=== PATIENT | female | born 1930 | race Caucasian/White ===

== ENCOUNTER 2018-06-07 08:24 | Inpatient (IN) | payer MEDICARE, BC ==
--- NOTE | 2018-06-07 08:59 | RAD ---
LEFT HIP TWO VIEWS: History: Fall with left hip pain. FINDINGS: There is a varus angulated subcapital left femoral neck fracture. No additional fracture is evident. There is diffuse osteopenia. IMPRESSION: Varus angulated left subcapital femoral neck fracture. POS: [facility]
--- NOTE | 2018-06-07 09:06 | CT ---
CT BRAIN: Date: 06-07-18 Provided Clinical History: Status post fall. Pain on left side. FINDINGS: The ventricular system appears normal in size and morphology. There is no evidence for intracranial h emorrhage or mass effect. The extracranial soft tissues and osseous structures demonstrate no acute a bnormality. IMPRESSION: No evidence for intracranial hemorrhage or mass effect. POS: [facility]
--- NOTE | 2018-06-07 09:07 | CT ---
CT CERVICAL SPINE: Date: 06-07-18 Provided Clinical History: Pain, status post fall. FINDINGS: There is no evidence for fracture or traumatic subluxation. Prominent cervical degenerative changes a re seen. No prevertebral soft tissue swelling evident. The visualized lung apices appear clear. IMPRESSION: No evidence for fracture or traumatic subluxation. POS: [facility]
--- NOTE | 2018-06-07 09:20 | RAD ---
FRONTAL RADIOGRAPH OF THE PELVIS: Date: 06-07-18 Comparison: None. History: Fall, trauma, pain. FINDINGS: There is subtle irregularity involving the superior pubic ramus on the left, suggesting a age indeter minate fracture. There is also subtle irregularity involving the inferior pubic ramus on the left, al so suggesting an age indeterminate subtle fracture. There is a poorly assessed fracture of the left f emoral neck with impaction and rotation of the proximal left femur. There is no widening of the sacro iliac joints or the pubic symphysis. IMPRESSION: 1. Impaction fracture of the left femoral neck. 2. Age indeterminate subtle fracture deformities noted involving the inferior and superior pubic oc s on the left. A CT examination of the pelvis could best assess fracture deformities involving the in ferior and superior pubic ramus on the left, as well as the left femoral neck. 3. Results called to Dr. Addison 8:50 a.m. 06-07-18. POS: [facility]
[2018-06-07 09:21] LABS: #Lymphocytes 1.5 thou/uL (1.20-3.40); #Monocytes 0.4 thou/uL (0.11-0.59); #Neutrophils 7.6 thou/uL (1.40-6.50); %Basophils 0.5 % (0.0-1.0); %Eosinophils 0.2 % (0.0-10.0); %Lymphocytes 15.7 % (21.0-51.0); %Monocytes 3.8 % (0.0-10.0); %Neutrophils 79.8 % (42.0-75.0); Mean Corpuscular Hemoglobin 32.2 pg (27.0-31.0); Mean Corpuscular Volume 97.7 fL (78.0-98.0); Mean Platelet Volume 8.1 fL (7.4-10.4); Platelet Count 205 thou/uL (130-400); RBC Distribution Width 12.2 % (11.5-14.5); Red Blood Cell (RBC) Count 4.35 mill/uL (4.20-5.40); White Blood Cell (WBC) Count 9.5 thou/uL (4.8-10.8)
[2018-06-07 09:37] LABS: PTT 28.2 SEC (22.9-36.1)
--- NOTE | 2018-06-07 09:42 | RAD ---
CHEST ONE VIEW: History: Pre op. Comparison: None. FINDINGS: There is interstitial prominence likely reflective of underlying fibrotic change. Heart size is upper limits of normal. There are vascular calcifications involving the thoracic aorta. A small chondroid lesion versus bone infarct along the proximal left humerus. There is mild scoliosis. There is diffuse osteopenia. IMPRESSION: No definite acute cardiopulmonary abnormality. POS: [facility]
[2018-06-07 09:44] LABS: Prothrombin Time 13.1 SEC (12.0-14.7)
[2018-06-07 09:47] LABS: ALT (SGPT) 15 U/L (8-55); AST (SGOT) 25 U/L (5-34); Albumin 3.7 g/dL (3.4-4.8); Alkaline Phosphatase 90 U/L (40-150); Anion Gap 11 mmol/L (10-20); BUN (Urea Nitrogen) 11 mg/dL (9.8-20.1); Bilirubin, Total 0.5 mg/dL (0.2-1.2); Calc. Creatinine Clearance 0 mL/min (70-130); Calcium 9.3 mg/dL (7.8-10.44); Carbon Dioxide 26 mmol/L (23-31); Chloride 107 mmol/L (98-107); Estimated GFR-MDRD 70; Globulin 2.9 g/dL (2.4-3.5); Glucose 117 mg/dL (83-110); Potassium 3.3 mmol/L (3.5-5.1); Protein, Total 6.6 g/dL (6.0-8.3); Sodium 141 mmol/L (136-145)
[2018-06-07] MEDS ORDERED: CEFAZOLIN/Water 2 GM/20 ML SYRINGE SLOW IVP SCH (10:00)
--- NOTE | 2018-06-07 10:16 | CON ---
DATE OF CONSULTATION: 06/07/2018 CONSULTING PHYSICIAN: Dr. Abdoul Salvador We were asked by Trauma in the Emergency Room to see the patient. The patient resides at [facility] and had a fall this morning. The patient does not think she hit her head, but unfortunately per family who is at the bedside, over the last 6 months her mentation has become much more diminished. She does have Alzheimer's and the family states that they have noticed a dramatic decline over the past 6 months. The patient's gait is also unsteady per family. She knows she has left hip pain, but is not able to let me know if she hit her head. She is not sure, but she has no bruising about the head whatsoever. She denies any numbness with palpation to her lower extremities, but has a fair amount of hip pain when I move that hip. Apparently per [facility] the patient has not eaten since last night. PAST MEDICAL HISTORY: Hyperthyroid, Alzheimer's, macular degeneration, breast cancer 20 years ago. PAST SURGICAL HISTORY: section and hysterectomy. PSYCHIATRIC HISTORY: Alzheimer's/depression. ALLERGIES: None noted. CURRENT MEDICATIONS: The patient takes levothyroxine, Abilify, Aricept, Namenda and baby aspirin. REVIEW OF SYSTEMS: Left hip pain and Alzheimer's, which the patient is struggling with answering questions, but again family is at the bedside. The rest of review of systems is negative. PHYSICAL EXAMINATION: GENERAL: Well-nourished appearing female, resting comfortably in bed. She is answering very simple questions, only oriented to person. HEENT: Normal exam. Face symmetric, tongue midline. NECK: Supple, trachea midline. RESPIRATORY: No distress. EXTREMITIES: Upper extremities; equal size, shape, symmetry, normal bulk and tone. Lower extremities; right lower extremity, no issues. Left lower extremity has a little bit of redness over the hip and pain with any movement of that left lower extremity. DP, PT pulses are grossly intact. ASSESSMENT: Left hip fracture. X-rays showed a left hip fracture. PLAN: I spoke with family and patient. We will go ahead and get her set up for a hemiarthroplasty. I have explained the procedure to the patient and the family, and the family will have to give authorization, which after discussing risks and benefits they are amenable to go forth with surgery. I let them know it is probably imperative to get her upright again and moving, it will be better for her in the long run and they understand this. The patient states she is okay if we fix her hip, but she really did not understand the risks and benefits as we explained to them to the family. We will discuss this again, but she just knows that she wants her hip to quit hurting and we can fix that for her. Status on eating, n.p.o. definitely since last night. We will get her put on the OR time slot, get her consented. Lab work has been drawn and get her set up for surgery. JEAN
[2018-06-07] MEDS ORDERED: CEFAZOLIN 2 GM/50 ML-DEXTROSE 2 GM in Premix Bag 1 BAG IVPB SCH (10:30)
[2018-06-07] MEDS ORDERED: Dextrose 5% in Water 1,000 ML IV PRN (11:16)
[2018-06-07] MEDS ORDERED: Ondansetron PF 4 MG/2 ML Vial IVP PRN (11:16)
[2018-06-07] MEDS ORDERED: Ondansetron ODT 4 MG TAB PO PRN (11:16)
[2018-06-07] MEDS ORDERED: Promethazine HCl 25 MG/ML VIAL IM PRN (11:16)
[2018-06-07] MEDS ORDERED: Dextrose 50% Abboject 50 ML SYRINGE SLOW IVP PRN (11:16)
[2018-06-07] MEDS ORDERED: Morphine 2 MG/ML SYRINGE SLOW IVP PRN (11:18)
[2018-06-07 11:43] LABS: Bacteria/HPF None Seen HPF (None Seen); Bilirubin Negative (Negative); Blood, Urine Small (Negative); Clarity CLOUDY (Clear); Glucose, Urine (Dipstick) Negative (Negative); Leukocyte Small (Negative); Nitrite Negative (Negative); Pathc Cast-AUWi Flag 2.47 (0-2.49); Protein, Urine (Dipstick) 30 mg/dL (Neg-Trace); Specific Gravity, Urine 1.024 (1.002-1.036)
[2018-06-07 11:45] LABS: Yeast-AUWi Flag 167.4 (0-25.0)
--- NOTE | 2018-06-07 11:53 | HP-2 ---
DATE OF ADMISSION: 06/07/2018 REQUESTING PHYSICIAN: Dr. Kin Addison M.D., emergency room physician RESIDENT: Dr. Rhonda Mera ATTENDING: Dr. Clayton Espino HISTORY OF PRESENT ILLNESS: This is an 87-year-old female who presented to the emergency department after a mechanical fall. The patient currently resides at [facility] and stated that she had a fall after tripping. The patient denies hitting her head or loss of consciousness. Per family at the bedside, over the last 6 months, the patient's mentation has become much more diminished. The patient does have Alzheimer's and family states that they have noticed a dramatic decline over the last 6 months. The patient's gait has also become unsteady per the family. The patient is complaining of left hip pain on exam in the ED. The patient denies any numbness with palpation to her lower extremities and reports pain with movement of the left lower extremity. Per [facility], the patient has not eaten since last night. The patient is A&O x1 on exam per baseline per the family. The information and the history has been obtained from the patient's family at the bedside and medical records. PAST MEDICAL HISTORY: Hyperthyroidism, Alzheimer's, macular degeneration, breast cancer 20 years ago. PAST SURGICAL HISTORY: section and hysterectomy. PSYCHIATRIC HISTORY: Alzheimer dementia, depression. ALLERGIES: None noted. MEDICATIONS: Levothyroxine, Abilify, Aricept, Namenda, aspirin. REVIEW OF SYSTEMS: Left hip pain and Alzheimer dementia. The patient is struggling with answering questions. Family at the bedside to assist with answering questions. Review of systems other than in HPI is negative. PHYSICAL EXAMINATION: VITAL SIGNS: Temperature 98.2, pulse 79, respirations 18, O2 saturation 97% on room air. GENERAL: Vital signs stable. On exam the patient is an elderly female resting comfortably in bed, in no acute distress. HEAD: Normal exam. Normocephalic, atraumatic. No contusions noted. NECK: Supple, trachea midline. RESPIRATORY: Bilateral symmetrical chest rise, nonlabored breathing. Clear to auscultation bilaterally. CARDIOVASCULAR: Regular rate and rhythm. No murmurs, rubs, or gallops. ABDOMEN: Soft, nontender, nondistended. EXTREMITIES: Upper extremities; equal size, shape, symmetry, normal bulk and tone. Lower extremities, right lower extremity normal exam. Left lower extremity; redness over the hip and pain with all movements of the left lower extremity. Pulses 2+ bilaterally in the lower extremities. NEUROLOGIC: GCS 15, speech normal, nonfocal exam. PSYCHIATRIC: The patient is A&O x1 per baseline. LABORATORY DATA: WBC is 9.5, hemoglobin 14, hematocrit 42.5, platelet 205. PT 13.1, INR 1, PTT 28.2. Sodium 141, potassium 3.3, chloride 107, BUN 11, creatinine 0.78, estimated GFR 70, LFTs within normal limits. RADIOGRAPHIC FINDINGS: Chest x-ray showed no definite acute cardiopulmonary abnormality. Brain CT showed no evidence for intracranial hemorrhage or mass effect. Pelvis x-ray showed impaction fracture of the left femoral neck, age indeterminate. Subtle fracture deformities noted involving inferior and superior pubic ramus on the left. CT exam of the pelvis recommended to best assess fracture deformities involving the inferior and superior pubic ramus on the left as well as a left femoral neck. Hip x-ray showed varus angulated left subcapital femoral neck fracture. Cervical spine CT showed no evidence for fracture or traumatic subluxation. ASSESSMENT AND PLAN: 1. Left hip fracture. 2. Electrolyte abnormalities. 3. Alzheimer dementia. 4. Acute traumatic pain. PLAN: The patient will be admitted to the Trauma Service and taken to the surgical floor. Orthopedic Surgery has been consulted and has spoken with and examined the patient. The patient will go to the OR for hemiarthroplasty with Dr. Salvador of Orthopedic Surgery. Postoperatively, the patient will be initiated with physical and occupational therapy. Pain control will be obtained with Iv and then transitioned to p.o. pain analgesics. Incentive spirometry and pulmonary toileting will be in place. The patient has been n.p.o. definitely since last night and we will follow her postoperatively as well. We will replace electrolytes as needed. We will place a rehab screen for discharge planning. The patient was seen and examined by Dr. Clayton Espino in the ED. The plan was discussed with the patient and family who were at the bedside and were all in agreement. JEAN
[2018-06-07 11:59] LABS: Hyaline Casts/LPF 4-6 HYALINE CAST LPF (0-3 Hyaline)
[2018-06-07 12:00] LABS: Crystals/HPF 2+ AMORPH URATES HPF (Negative); Yeast-All Forms None Seen HPF (None Seen)
[2018-06-07 13:31] VITALS: BMI 26.2
[2018-06-07] MEDS: Sodium Chloride 0.9% 1,000 ML IV SCH ×2 (14:18→14:39)
[2018-06-07] MEDS: traMADol HCl 50 MG TAB PO SCH ×2 (14:18→20:24)
[2018-06-07] MEDS: Acetaminophen 500 MG TAB PO SCH ×3 (14:18→23:22)
[2018-06-07] MEDS ORDERED: CEFAZOLIN 2 GM/50 ML BAG ONE (16:41)
[2018-06-07] MEDS ORDERED: Lidocaine 1% PF 5 ML VIAL ONE (17:14)
[2018-06-07] MEDS ORDERED: Ondansetron PF 4 MG/2 ML Vial ONE (17:14)
[2018-06-07] MEDS ORDERED: PHENYLEPHRINE-NS 100 MCG/ML 10 ML SYRINGE ONE (17:14)
[2018-06-07] MEDS ORDERED: Glycopyrrolate 0.2 MG/ML 5 ML SYRINGE ONE (17:14)
[2018-06-07] MEDS ORDERED: PROPOFOL 200 MG/20 ML VIAL ONE (17:14)
[2018-06-07] MEDS ORDERED: Fentanyl 100 MCG/2 ML VIAL ONE (17:41)
--- NOTE | 2018-06-07 20:00 | RAD ---
TWO VIEWS LEFT HIP 06/07/18 HISTORY: Left hip arthroplasty. AP and lateral views of the left hip obtained. The patient has had a unipolar left hip arthroplasty. Femoral and acetabular components are in good p osition. IMPRESSION: Status post left hip arthroplasty. POS: [facility]
[2018-06-07] MEDS ORDERED: Famotidine/PF 20 mg/2ml Vial SLOW IVP SCH (21:00)
[2018-06-07] MEDS ORDERED: Famotidine 20 MG TAB PO SCH (21:00)
[2018-06-08] MEDS: CEFAZOLIN 2 GM/50 ML BAG IVPB SCH ×2 (00:37→09:25)
--- NOTE | 2018-06-08 01:24 | OP ---
PROCEDURE: Left hip bipolar hemiarthroplasty. PREOPERATIVE DIAGNOSIS: Left femoral neck fracture. POSTOPERATIVE DIAGNOSIS: Left femoral neck fracture. COMPLICATIONS: None. ESTIMATED BLOOD LOSS: 150 mL. SURGEON: Abdoul Salvador M.D. ANESTHESIA: General plus local. BACK TENDER PULP DRIER: Ivette Kumari PA-C IMPLANTS: DePuy [employer]arn[employer] stem size 4 basic press fit, size 42 bipolar shell with a +5 femoral head. INDICATIONS: Ms. Ariza is an 87-year-old female who fell. She fractured her femoral neck. She was indicated for hemiarthroplasty of the hip to restore mobility and relieve pain. Risks have been rev iewed. She elected to proceed. Risks have been reviewed including instability of the hip, infection , wound complication, nerve or vascular injury and others. DESCRIPTION OF PROCEDURE: Ms. Ariza was identified in the preoperative holding area. Her correct e xtremity was marked. She was carried to the operating room. She was positioned supine. She was con verted to the lateral decubitus position after intubation. We gave her intravenous antibiotics. She was prepped and draped in sterile fashion. A multidisciplinary timeout was performed. At this poin t, we performed a posterior approach to the hip. We dissected down through the subcutaneous tissues to the fascia. The fascia was opened. We then exposed the underlying short external rotators of the hip. These were subperiosteally divided from the proximal femur. We performed a capsulotomy. At t his point, the femoral head was removed. We then performed a new osteotomy of the femoral neck. We then prepared the femoral canal by broaching and reaming up to a size 4 stem. We trialed from a size 4. This gave a good fit. There was full range of motion and no instability. We removed the trial components. At this point, we thoroughly irrigated and then impacted our final components. Again, w e reduced the hip. The short external rotators were closed with #5 Ethibond suture followed by #2 Vi cryl suture and layered closure. A sterile dressing was applied. The patient was taken to the [facility] room in good condition without complication at this point.
[2018-06-08] MEDS: traMADol HCl 50 MG TAB PO SCH ×3 (03:31→18:59)
[2018-06-08] MEDS: Acetaminophen 500 MG TAB PO SCH ×5 (05:17→23:14)
[2018-06-08 05:39] LABS: #Eosinphils 0.1 thou/uL (0.0-0.7); #Monocytes 0.3 thou/uL (0.11-0.59); #Neutrophils 5.9 thou/uL (1.40-6.50); %Basophils 0.1 % (0.0-1.0); %Lymphocytes 13.6 % (21.0-51.0); %Monocytes 4.2 % (0.0-10.0); %Neutrophils 81.1 % (42.0-75.0); Hemoglobin 11.9 g/dL (12.0-16.0); Mean Corpuscular HGB CONC 33.6 g/dL (32.0-36.0); Mean Corpuscular Hemoglobin 33.1 pg (27.0-31.0); Mean Corpuscular Volume 98.5 fL (78.0-98.0); Mean Platelet Volume 8.5 fL (7.4-10.4); Platelet Count 151 thou/uL (130-400); RBC Distribution Width 12.2 % (11.5-14.5); Red Blood Cell (RBC) Count 3.61 mill/uL (4.20-5.40); White Blood Cell (WBC) Count 7.3 thou/uL (4.8-10.8)
[2018-06-08 05:53] LABS: Anion Gap 7 mmol/L (10-20); BUN (Urea Nitrogen) 13 mg/dL (9.8-20.1); Calc. Creatinine Clearance 47 mL/min (70-130); Calcium 8.1 mg/dL (7.8-10.44); Carbon Dioxide 31 mmol/L (23-31); Chloride 107 mmol/L (98-107); Estimated GFR-MDRD 68; Glucose 101 mg/dL (83-110); Magnesium 1.5 mg/dL (1.6-2.6); Potassium 3.2 mmol/L (3.5-5.1); Sodium 142 mmol/L (136-145)
[2018-06-08] MEDS ORDERED: Magnesium 2 GM/50 ML 2 GM in Premix Bag 1 BAG IVPB SCH (07:15)
[2018-06-08] MEDS ORDERED: Potassium Phosphate 30 MMOL in Sodium Chloride 0.9% 500 ML IVPB SCH (07:15)
[2018-06-08] MEDS ORDERED: Potassium Phosphate 30 MMOL in Sodium Chloride 0.9% 250 ML 250 ML IVPB SCH (08:00)
[2018-06-08] MEDS: Sodium Chloride 0.9% 1,000 ML IV SCH ×2 (08:42→17:21)
[2018-06-08] MEDS: Senokot 8.6 MG TAB PO SCH ×2 (09:19→20:04)
[2018-06-08] MEDS: Ascorbic Acid 500 mg Chewable Tablet PO SCH ×2 (09:19→20:04)
[2018-06-08] MEDS: Polyethylene Glycol 3350 17 GM Packet PO SCH (09:19)
[2018-06-08] MEDS: Enoxaparin Sodium 40 MG/0.4 ML SYRINGE SC SCH (09:19)
[2018-06-08] MEDS: traMADol HCl 50 MG TAB PO PRN (09:38)
--- NOTE | 2018-06-08 10:35 | PRG-2 ---
DATE OF SERVICE: 06/08/2018 RESIDENT: Dr. Rhonda Mera. ATTENDING: Dr. Clayton Espino SUBJECTIVE: This is an 87-year-old female status post fall, found to have a left hip fracture. The patient is postop day #1 from left hemiarthroplasty with Dr. Salvador. On exam this morning per patient and family at the bedside, the patient is not complaining of any pain. Patient has not begun to eat, but was in the process of ordering breakfast this morning. The patient has not yet worked with physical or occupational therapy. The patient remains A&O x1, which is her baseline per the family. OBJECTIVE: VITAL SIGNS: Temperature 100.3. Pulse 73, respirations 18. O2 saturation 100 % on room air, BP 126/74. GENERAL: Elderly female, resting comfortably in bed, in no acute distress. HEENT: Normocephalic, atraumatic. RESPIRATORY: Bilateral symmetrical chest rise, nonlabored breathing. Clear to auscultation bilaterally. CARDIOVASCULAR: Regular rate and rhythm. No murmurs, rubs, or gallops. ABDOMEN: Soft, nontender, nondistended. EXTREMITIES: The patient still has pain to the left lower extremity over the hip with palpation. Right lower extremity normal exam. Pulses 2+ bilaterally in the lower extremities. NEUROLOGIC: GCS of 15, nonfocal exam. PSYCHIATRIC: Normal mood and affect. LABORATORY DATA: WBC 7.3, hemoglobin 11.9, hematocrit 35.5, platelets 151, sodium 142, potassium 3.2, BUN 13, creatinine 0.80, calcium 8.1, phosphorus 4.0 , magnesium 1.5. Radiologic hip x-ray showing status post left hip arthroplasty. ASSESSMENT: 1. Left hip fracture, status post fall. 2. Electrolyte abnormalities. 3. Alzheimer dementia. 4. Acute traumatic pain. PLAN: The patient is being adequately pain controlled with p.o. analgesics. Highly encouraged incentive spirometry and pulmonary toileting. The patient demonstrated incentive spirometer with difficulty getting to 500. Reinforced with the patient and family the importance of incentive spirometry. The patient will be participating with physical and occupational therapy today. Discussed with family at the bedside and nurse to time analgesics with physical therapy. The patient will have regular diet today. Bowel regimen in place. DVT prophylaxis started. Patient started on Ensure. We will continue to replace electrolytes as needed. The patient receiving iron and vitamin C. Rehab screen in place for discharge planning. Discussed with family that they would like to have physical therapy and wound care come to [facility] or post- discharge care. Patient was seen and evaluated by Dr. Espino. We will continue to follow the patient's progress. JEAN
[2018-06-08] MEDS ORDERED: Meclizine HCl 25 MG TAB PO PRN (10:47)
[2018-06-08] MEDS ORDERED: Diphenoxylate HCl/Atropine Tablet PO PRN (12:05)
[2018-06-08] MEDS ORDERED: Diphenoxylate HCl/Atropine Tablet PO SCH (13:00)
[2018-06-08] MEDS ORDERED: Lactated Ringer's 500 ML IV SCH ×2 (16:00→16:45)
[2018-06-08 17:02] LABS: #Monocytes 0.5 thou/uL (0.11-0.59); #Neutrophils 8.6 thou/uL (1.40-6.50); %Basophils 0.1 % (0.0-1.0); %Eosinophils 0.1 % (0.0-10.0); %Lymphocytes 9.5 % (21.0-51.0); %Monocytes 5.4 % (0.0-10.0); Hemoglobin 10.4 g/dL (12.0-16.0); Mean Corpuscular HGB CONC 32.9 g/dL (32.0-36.0); Mean Corpuscular Hemoglobin 31.9 pg (27.0-31.0); Mean Corpuscular Volume 96.9 fL (78.0-98.0); Mean Platelet Volume 8.5 fL (7.4-10.4); Platelet Count 156 thou/uL (130-400); RBC Distribution Width 12.2 % (11.5-14.5); Red Blood Cell (RBC) Count 3.27 mill/uL (4.20-5.40); White Blood Cell (WBC) Count 10.1 thou/uL (4.8-10.8)
[2018-06-08] MEDS: Hydrocortisone Sod Succ/PF 100 mg/2 ml Vial IVP SCH (19:02)
[2018-06-08] MEDS: Famotidine 20 MG TAB PO SCH (20:04)
[2018-06-08] MEDS: Famotidine/PF 20 mg/2ml Vial SLOW IVP SCH (20:05)
[2018-06-08] MEDS: Aripiprazole 2 MG TAB PO SCH (20:05)
[2018-06-09] MEDS: Hydrocortisone Sod Succ/PF 100 mg/2 ml Vial IVP SCH ×4 (00:34→18:48)
[2018-06-09] MEDS: traMADol HCl 50 MG TAB PO SCH ×3 (03:29→18:47)
[2018-06-09] MEDS: Sodium Chloride 0.9% 1,000 ML IV SCH (03:30)
[2018-06-09] MEDS: Levothyroxine Sodium 75 MCG TAB PO SCH (06:01)
[2018-06-09] MEDS: Acetaminophen 500 MG TAB PO SCH ×3 (06:05→17:50)
[2018-06-09] MEDS: Senokot 8.6 MG TAB PO SCH ×2 (09:30→20:26)
[2018-06-09] MEDS: Aspirin 81 mg Enteric Coated Tablet PO SCH (09:30)
[2018-06-09] MEDS: Polyethylene Glycol 3350 17 GM Packet PO SCH (09:30)
[2018-06-09] MEDS: Ascorbic Acid 500 mg Chewable Tablet PO SCH ×2 (09:30→20:27)
[2018-06-09] MEDS: Folic Acid 1 MG TAB PO SCH (09:30)
[2018-06-09] MEDS: Enoxaparin Sodium 40 MG/0.4 ML SYRINGE SC SCH (09:31)
[2018-06-09] MEDS: Donepezil HCl 10 MG TAB PO SCH (09:31)
--- NOTE | 2018-06-09 15:24 | PRG ---
DATE OF SERVICE: 06/09/2018 SUBJECTIVE: This is an 87-year-old female who is postop day 2 status post hip fracture repair. Upon our evaluation this morning, the patient is working with physical therapy and does vocalize some chani n. Her mental status remains at baseline. She was started on IV steroids yesterday for hypotension and adrenal insufficiency. OBJECTIVE: VITAL SIGNS: Temperature 97.8, pulse 65, respirations 16, O2 sat 95%-99% on nasal cannula, blood pre ssure 94/55. GENERAL: Elderly-appearing female, in no acute distress, working with physical therapy, using a walk er to ambulate. PULMONARY: Normal work of breathing. Symmetric rise. CARDIOVASCULAR: Regular rate and rhythm. GASTROINTESTINAL: Abdomen is soft, nontender, nondistended. MUSCULOSKELETAL: Moves all extremities x4. NEUROLOGIC: Oriented to self only. No focal deficit is noted. This is baseline for the patient. LABORATORY DATA: No new laboratory findings. ASSESSMENT: 1. Status post ground level fall. 2. Left hip fracture, postoperative day 2 status post left hemiarthroplasty. 3. Alzheimer's dementia. 4. Acute traumatic pain. 5. Adrenal insufficiency. PLAN: Continue IV steroids as ordered. Discontinue Prieto. Continue PT and OT. Encourage mobility. A.m. labs. Continue pain management and supportive care as ordered. The patient is being evaluate d for fci placement upon discharge to [facility]. Plan of care was discussed with the patient's family at bedside and all questions were answered at the time of this dictation. We wi ll follow up with case management. The patient has been seen and evaluated with Dr. Espino.
[2018-06-09] MEDS: Famotidine 20 MG TAB PO SCH (20:26)
[2018-06-09] MEDS: Aripiprazole 2 MG TAB PO SCH (20:26)
[2018-06-09] MEDS: Famotidine/PF 20 mg/2ml Vial SLOW IVP SCH (20:27)
[2018-06-10] MEDS: traMADol HCl 50 MG TAB PO SCH ×3 (03:17→18:32)
[2018-06-10] MEDS: Levothyroxine Sodium 75 MCG TAB PO SCH (06:05)
[2018-06-10] MEDS: Acetaminophen 500 MG TAB PO SCH ×5 (06:05→22:32)
[2018-06-10] MEDS: Hydrocortisone Sod Succ/PF 100 mg/2 ml Vial IVP SCH ×4 (06:06→18:32)
[2018-06-10 06:09] LABS: #Lymphocytes 1.1 thou/uL (1.20-3.40); #Monocytes 0.5 thou/uL (0.11-0.59); #Neutrophils 6.3 thou/uL (1.40-6.50); %Basophils 0.2 % (0.0-1.0); %Eosinophils 0.3 % (0.0-10.0); %Lymphocytes 14.1 % (21.0-51.0); %Monocytes 6.2 % (0.0-10.0); %Neutrophils 79.2 % (42.0-75.0); Hemoglobin 10.2 g/dL (12.0-16.0); Mean Corpuscular Hemoglobin 32.2 pg (27.0-31.0); Mean Corpuscular Volume 97.6 fL (78.0-98.0); Mean Platelet Volume 8.6 fL (7.4-10.4); Platelet Count 157 thou/uL (130-400); RBC Distribution Width 12.1 % (11.5-14.5); Red Blood Cell (RBC) Count 3.17 mill/uL (4.20-5.40); White Blood Cell (WBC) Count 7.9 thou/uL (4.8-10.8)
[2018-06-10 06:19] LABS: Anion Gap 9 mmol/L (10-20); BUN (Urea Nitrogen) 19 mg/dL (9.8-20.1); Calc. Creatinine Clearance 51 mL/min (70-130); Calcium 8.5 mg/dL (7.8-10.44); Carbon Dioxide 27 mmol/L (23-31); Chloride 106 mmol/L (98-107); Estimated GFR-MDRD 74; Glucose 111 mg/dL (83-110); Magnesium 2.4 mg/dL (1.6-2.6); Phosphorus 3.2 mg/dL (2.3-4.7); Sodium 138 mmol/L (136-145)
[2018-06-10] MEDS: Polyethylene Glycol 3350 17 GM Packet PO SCH (07:50)
[2018-06-10] MEDS: Senokot 8.6 MG TAB PO SCH ×2 (07:51→21:19)
[2018-06-10] MEDS: Folic Acid 1 MG TAB PO SCH (07:52)
[2018-06-10] MEDS: Ascorbic Acid 500 mg Chewable Tablet PO SCH ×2 (07:52→21:19)
[2018-06-10] MEDS: Enoxaparin Sodium 40 MG/0.4 ML SYRINGE SC SCH (07:52)
[2018-06-10] MEDS: Aspirin 81 mg Enteric Coated Tablet PO SCH (07:52)
[2018-06-10] MEDS: Donepezil HCl 10 MG TAB PO SCH (07:52)
[2018-06-10 11:25] LABS: Squamous Epithelial 0-3 HPF (0-3); WBC/HPF 0-3 HPF (0-3)
[2018-06-10 11:27] LABS: Bacteria/HPF Rare-Few HPF (None Seen); Hyaline Casts/LPF 4-6 HYALINE CAST LPF (0-3 Hyaline)
--- NOTE | 2018-06-10 16:35 | PRG ---
DATE OF SERVICE: 06/10/2018 SUBJECTIVE: Ms. Ariza is an 87-year-old woman who is now 3 days status post ORIF of a hip fracture. She remains at baseline mental status of senile dementia, Alzheimer's type. She moves all extremit ies and does follow commands. She has poor appetite, however, does tolerate oral intake. Urinary ou tput is adequate. OBJECTIVE: VITAL SIGNS: Today includes blood pressure 146/70, pulse is 85, respiratory rate is 12, temperature 98.1 degrees Fahrenheit, oxygen saturation is 95% on 2 liters by nasal cannula oxygen. HEART: Reveals regular rate and rhythm. No murmurs or gallops auscultated. CHEST: Lungs clear to auscultation bilaterally. Her breathing is regular and unlabored. ABDOMEN: Soft, nontender, nondistended. EXTREMITIES: Reveals 2+ radial and pedal pulses bilaterally. No ankle edema is present. NEUROLOGIC: Reveals no focal deficits present. LABORATORY DATA: Today includes a CBC with 7900 white blood cells, hemoglobin and hematocrit 10.2 an d 30.9 respectively, platelet count is 157,000. Metabolic profile, sodium 138, potassium 4.0, chlori de is 106, bicarbonate is 27, BUN 19, creatinine 0.74, glucose is 111, magnesium 2.4. Phosphorus is 3.2. IMPRESSION: Postoperative day number 3 status post open reduction internal fixation of left hip frac ture. PLAN: 1. Encourage oral intake. 2. Increase activity per physical and occupational therapy. 3. Anticipate discharge to [facility] once bed becomes available.
[2018-06-10] MEDS: Aripiprazole 2 MG TAB PO SCH (21:19)
[2018-06-10] MEDS: Famotidine 20 MG TAB PO SCH (21:20)
[2018-06-10] MEDS: Famotidine/PF 20 mg/2ml Vial SLOW IVP SCH (21:25)
[2018-06-11] MEDS: Hydrocortisone Sod Succ/PF 100 mg/2 ml Vial IVP SCH ×3 (00:32→18:25)
[2018-06-11] MEDS: traMADol HCl 50 MG TAB PO SCH ×3 (03:01→18:32)
[2018-06-11] MEDS: Levothyroxine Sodium 75 MCG TAB PO SCH (06:00)
[2018-06-11] MEDS: Acetaminophen 500 MG TAB PO SCH ×4 (06:04→23:29)
[2018-06-11] MEDS: Polyethylene Glycol 3350 17 GM Packet PO SCH (09:02)
[2018-06-11] MEDS: Senokot 8.6 MG TAB PO SCH ×2 (09:02→20:49)
[2018-06-11] MEDS: Donepezil HCl 10 MG TAB PO SCH (09:03)
[2018-06-11] MEDS: Aspirin 81 mg Enteric Coated Tablet PO SCH (09:03)
[2018-06-11] MEDS: Folic Acid 1 MG TAB PO SCH (09:03)
[2018-06-11] MEDS: Ascorbic Acid 500 mg Chewable Tablet PO SCH ×2 (09:03→20:49)
[2018-06-11] MEDS: Enoxaparin Sodium 40 MG/0.4 ML SYRINGE SC SCH (09:03)
--- NOTE | 2018-06-11 13:15 | PRG-2 ---
DATE OF SERVICE: 06/11/2018 The patient was seen with Dr. Clayton Espino. SUBJECTIVE: Ms. Ariza is an 87-year-old woman who is now 4 days status post ORIF of hip fracture. She remains at her mental status baseline A&O x1, who is pleasantly demented. She is seen this jens palma with family at the bedside, sitting up at the edge of the bed. Plan is for [facility] with [facility] tomorrow. Patient did have some trouble with her regular diet and ashleyi ng a mechanical soft diet which order has been reflected. She did have to have a Prieto replaced for urinary retention and we can do a voiding trial as needed; however, she cannot go to the nursing faci lity with the Prieto catheter. PHYSICAL EXAMINATION: VITAL SIGNS: Temperature is 98.6, blood pressure 134/76, heart rate is 62, respiratory rate is 20. She is 96% on 2 liters of oxygen nasal cannula. GENERAL: An 87-year-old female sitting up in a chair, no acute distress. HEENT: Normocephalic, atraumatic. RESPIRATORY: Equal rise and fall. No respiratory distress. HEART: Regular rate rhythm. ABDOMEN: Soft. MUSCULOSKELETAL: The patient has a dry dressing noted to her left hip. LABORATORY DATA: There is none from today. ASSESSMENT: 1. Postoperative day #4, status post open reduction internal fixation of the left femoral neck fract ure. 2. Dementia. 3. Urinary retention. PLAN: 1. We will change to mechanical soft diet. 2. Increase activity as tolerated. 3. Plan for discharge back to nursing facility tomorrow. 4. Reduce steroids to b.i.d. dosing now and likely wean stress dose steroids. 5. Pain control as needed. 6. Continue all other supportive care. 7. I have updated family at the bedside and answered all questions.
[2018-06-11] MEDS: Aripiprazole 2 MG TAB PO SCH (20:48)
[2018-06-11] MEDS: Famotidine 20 MG TAB PO SCH (20:49)
[2018-06-11] MEDS: Famotidine/PF 20 mg/2ml Vial SLOW IVP SCH (20:49)
[2018-06-12] MEDS: traMADol HCl 50 MG TAB PO SCH (03:14)
[2018-06-12] MEDS: Hydrocortisone Sod Succ/PF 100 mg/2 ml Vial IVP SCH (05:28)
[2018-06-12] MEDS: Levothyroxine Sodium 75 MCG TAB PO SCH (05:29)
[2018-06-12] MEDS: Acetaminophen 500 MG TAB PO SCH (05:29)
[2018-06-12] MEDS: Senokot 8.6 MG TAB PO SCH (09:05)
[2018-06-12] MEDS: Polyethylene Glycol 3350 17 GM Packet PO SCH (09:05)
[2018-06-12] MEDS: Ascorbic Acid 500 mg Chewable Tablet PO SCH (09:05)
[2018-06-12] MEDS: Donepezil HCl 10 MG TAB PO SCH (09:05)
[2018-06-12] MEDS: Folic Acid 1 MG TAB PO SCH (09:05)
[2018-06-12] MEDS: traMADol HCl 50 MG TAB PO PRN (09:06)
[2018-06-12] MEDS: Enoxaparin Sodium 40 MG/0.4 ML SYRINGE SC SCH (09:06)
[2018-06-12] MEDS: Aspirin 81 mg Enteric Coated Tablet PO SCH (09:07)
[2018-06-12 11:48] VITALS: BP 128/73; TEMP 99.3
--- NOTE | 2018-06-12 14:18 | DIS-2 ---
DATE OF ADMISSION: 06/07/2018 DATE OF DISCHARGE: 06/12/2018 ADMITTING PHYSICIAN: Clayton Espino D.O. DISCHARGING PHYSICIAN: Clayton Espino D.O. ADMITTING DIAGNOSES: 1. Left hip fracture. 2. Electrolyte abnormalities. 3. Alzheimer's disease. 4. Acute traumatic pain. DISCHARGING DIAGNOSES: 1. Left hip fracture status post open reduction internal fixation. 2. Electrolyte abnormalities, improving. 3. Alzheimer's disease. 4. Acute traumatic pain, resolving. PROCEDURES DURING THIS STAY: ORIF of the left hip fracture on 06/07/[address] Salvador. HOSPITAL COURSE: Ms. Ariza presented to the Emergency Department with a chief complaint of left hip pain, found to have a left hip fracture. She is normally A and O x1. She was taken to the operative suite. She had ORIF of the same. She improved. She is working with PT and she stayed 3 days she is going to go to [facility]. She has been accepted there. Her vital signs remained stable. Her electrolytes have been replaced. She is tolerating diet. She is working with PT. The patient has had family at the bedside. They are on board with this plan. She will continue further rehab at the facility. The patient on the date of discharge is ambulatory in the room, is in no distress and she does verbalize understanding of the discharge plan; however, it is questionable whether she will remember said plans. OBJECTIVE DATA: VITAL SIGNS: Temperature is 98.3, blood pressure is 129/79, heart rate is 65, respiratory rate is 20. She is satting 99% on 2 liters of oxygen nasal cannula. GENERAL: This is an 87-year-old female, sitting up in bed, working with Occupational Therapy, in no distress. HEENT: Normocephalic, atraumatic. Trachea is midline. RESPIRATORY: Equal rise and fall. No respiratory distress. CARDIOVASCULAR: Strong pulse. No edema is appreciated. ABDOMEN: Soft. MUSCULOSKELETAL: Moves extremities well. Wound care has dressed her wound. PSYCHIATRIC: Appears normal mood and affect. NEUROLOGIC: Alert and oriented to person only and this is at the patient's baseline. She is alert and interact well. SKIN: [place], warm and dry. DIAGNOSTIC DATA: From today, none. DISCHARGE PLAN: To [facility]. The patient will follow up with Dr. Resendez. The patient can follow up with Dr. Salvador in 2 weeks in the Orthopedic Clinic. I have coordinated care with Orthopedics. The patient will be transferred via EMS to the facility. I have updated the patient and the patient's family at the bedside and answered all questions. The patient was seen with Dr. Clayton Espino. Greater than 30 minutes was taken in discharge prepping this patient. JEAN
== END 2018-06-12 12:01 | DRG 470 ==
LOC: ERS 08:24 → ERHOLD 09:38 → SURG A 12:45
PROVIDERS: ADMIT Surgery; ATTEND Surgery
PROC: 0SRS0JA Replacement of Left Hip Joint, Femoral Surface with Synthetic Substitute, Uncemented, Open Approach (ICD-10-PCS; principal; 2018-06-07)
DX: S72.002A Fracture of unspecified part of neck of left femur, initial encounter for closed fracture (principal); E27.40 Unspecified adrenocortical insufficiency; G30.9 Alzheimer's disease, unspecified; F02.80 Dementia in other diseases classified elsewhere, unspecified severity, without behavioral disturbance, psychotic disturbance, mood disturbance, and anxiety; E05.90 Thyrotoxicosis, unspecified without thyrotoxic crisis or storm; W01.0XXA Fall on same level from slipping, tripping and stumbling without subsequent striking against object, initial encounter; Y92.129 Unspecified place in nursing home as the place of occurrence of the external cause; R53.81 Other malaise; Z85.3 Personal history of malignant neoplasm of breast; F32.9 Major depressive disorder, single episode, unspecified; Z79.899 Other long term (current) drug therapy; Z79.82 Long term (current) use of aspirin; R33.9 Retention of urine, unspecified; I95.9 Hypotension, unspecified
CPT/HCPCS: 36415; 51702; 70450; 71045; 72125; 72170; 80048; 80053; 81001; 81015; 82533; 83735; 84100; 85025; 85610; 85730; 86850; 86870; 86900; 86901; 86905; 86922; 87040; 87086; 93005; G0390; G8978-GP-CM; G8979-GP-CK; G8987-GO-CM; G8988-GO-CJ; J0131; J1650; J1720; J2001; J2405; J2704; J3010; J7050; S0028